=== PATIENT | female | born 1950 | race Caucasian/White ===

== ENCOUNTER 2019-04-01 11:09 | Emergency (ER) | payer MEDICARE, SELFPAY ==
[2019-04-01] VITALS (12 sets, daily range): BP systolic 98–200; BP diastolic 49–104; PULSE 69–81; RESP 12–20; TEMP 36.6–36.8; O2SAT 4–99; BMI 64.9
--- NOTE | 2019-04-01 11:46 | RAD_ITS ---
STUDY: X-RAY - LEFT FEMUR REASON FOR STUDY: Pain, injury. TECHNIQUE: 2 view(s) of the femur. COMPARISON: None. FINDINGS: There is osteopenia. There is a mildly displaced subcapital hip fracture. There are degenerative changes of the left knee. There is vascular calcification. RAD/Femur Min 2 Views IMPRESSION: Left hip fracture. Osteopenia. Electronically Signed: Jose Vance MD at 14:31 EDT Tel , Service support ,
--- NOTE | 2019-04-01 11:46 | RAD_ITS ---
STUDY: X-RAY - LEFT ANKLE REASON FOR EXAM: Pain, injury. TECHNIQUE: 3 view(s) of the ankle. COMPARISON: None. FINDINGS: There is severe osteopenia. Normal visualized distal tibia. There is chronic healed fracture deformity of the distal fibula. Normal medial and lateral malleoli. Normal tibiotalar articulation and ankle mortise. Normal visualized talus and calcaneus. The visualized subtalar, talonavicular, calcaneocuboid and tarsal articulations are normal. There is soft tissue swelling. There is vascular calcification. There are surgical clips. RAD/Ankle min 3 Views IMPRESSION: Chronic healed fracture deformity of the distal fibula. Soft tissue swelling. Osteopenia. Electronically Signed: Jose Vance MD at 14:26 EDT Tel , Service support ,
--- NOTE | 2019-04-01 11:46 | RAD_ITS ---
STUDY: X-RAY - PELVIS REASON FOR EXAM: Female, 69 years old. Pain TECHNIQUE: One view of the pelvis was obtained. COMPARISON: None. FINDINGS: There is a non-specific bowel gas pattern. Normal visualized soft tissue structures. There is diffuse demineralization of the osseous structures. Degenerative arthrosis noted in both hips and the SI joints. No clearly demonstrated fracture. However, hip and pelvic fractures in patients of this age can be subtle, if there is strong clinical suspicion of a fracture, recommend further evaluation with CT. Dense vascular calcifications noted. RAD/Pelvis 1 or 2 Views IMPRESSION: Diffuse osteopenia with degenerative arthrosis. No clearly demonstrated fracture. However, if there is strong clinical suspicion of a fracture, recommend further evaluation with CT Electronically Signed: Clint Barrientos MD at 13:25 EDT , Service support ,
--- NOTE | 2019-04-01 11:46 | RAD_ITS ---
STUDY: X-RAY - LEFT FOOT CLINICAL: Pain, injury. TECHNIQUE: 3 view(s) of the foot. COMPARISON: None. FINDINGS: There is severe osteopenia. Normal talus, calcaneus, and tarsal bones. Normal visualized subtalar, talonavicular, calcaneocuboid, tarsal and tarsometatarsal articulations. Normal metatarsi. Normal metatarsophalangeal joint of the great toe. Normal tibial and fibular sesamoid bones. Normal interphalangeal joint of the great toe. Normal phalanges of the great toe. Normal second through fifth metatarsophalangeal joints. Normal interphalangeal joints and phalanges of the lesser toes. There is soft tissue swelling. There is vascular calcification. RAD/Foot min 3 Views IMPRESSION: Soft tissue swelling. Severe osteopenia limiting evaluation for fracture. Electronically Signed: Jose Vance MD at 14:25 EDT Tel , Service support ,
--- NOTE | 2019-04-01 11:46 | RAD_ITS ---
STUDY: X-RAY CHEST REASON FOR EXAM: Female, 69 years old. Shortness of breath, desaturation, recent fall, pain TECHNIQUE: Portable chest COMPARISON: None. FINDINGS: There is no visible rib fracture, limited evaluation. Evaluated portions of the shoulders appear intact. Mild scoliosis and thoracic spondylosis. Median sternotomy, moderate cardiomegaly, ectatic aortic arch, normal hermelindo and pleural margins. Bibasilar atelectasis. Low inspiratory effort. No defined effusion. No apparent pneumothorax. RAD/Chest 1 View IMPRESSION: Atelectasis. No evidence of acute injury. Electronically Signed: Livan Sow MD at 14:32 EDT Tel , Service support ,
--- NOTE | 2019-04-01 11:47 | RAD_ITS ---
STUDY: X-RAY - LEFT ELBOW REASON FOR EXAM: Female, 69 years old. Injury, pain, fall TECHNIQUE: 3 view(s) of the elbow. COMPARISON: None. FINDINGS: Osteopenia. No visible fracture. No apparent effusion. Normal alignment of the radiocapitellar and ulnotrochlear articulations. Periarticular soft tissues exhibit no acute process. Moderate peripheral arterial calcifications. There is osteophytosis of the coronoid process of the ulna at the articular margin, mild chronic degenerative features. RAD/Elbow min 3 Views IMPRESSION: No radiographic evidence of acute injury. Electronically Signed: Livan Sow MD at 14:31 EDT Tel , Service support ,
--- NOTE | 2019-04-01 11:48 | ED.VIS.GEN ---
History of Present Illness Chief Complaint: Shortness of Breath Informant: Patient Onset: Days - 2-3 Context: Gradual Onset Timing: Continuous Quality: wheezing Location: chest Current Severity: Moderate Maximum Severity: Moderate Worsened by: unk Relieved by: unk Associated Symptoms: see below Narrative: Patient is sent from nursing facility. She fell out of bed 1 week ago onto her left side and has been having left knee and hip pain ever since but she states that her entire leg hurts. She states she had x-rays and they told her they were negative. She states she could not walk prior to this fall. She states both of her elbows are also hurting. She did not injure the right one. She did not injure her head or lose consciousness. States that she started getting short of breath 2 days ago, chest started hurting around that time. She is a very poor historian, cannot tell me anything about her chest discomfort other than it hurts. No apparent radiation. She cannot tell me if her cough is worse than usual or if her sputum production is different colored or amount than usual. Exam is very limited since the patient refuses to move her extremities, allow us to roll her or sit her up in order to listen to her back well, and tells us not to touch her left lower extremity. She also tells us that something split underneath of her left breast when she fell a week ago, and then tells us not to touch it. She eventually allows examination of it. - Past Medical History (1) Chronic back pain Status: Chronic (2) Diabetic gastropathy Status: Chronic (3) Fatty liver Status: Chronic (4) Gastroesophageal reflux disease Status: Chronic (5) Type 2 diabetes mellitus Status: Chronic (6) complex cyst left kidney Status: Chronic (7) history of bleeding diverticulosis Status: Chronic (8) COPD (chronic obstructive pulmonary disease) Status: Chronic (9) CHF (congestive heart failure) Status: Chronic (10) Hypothyroid Status: Chronic (11) MARLY (obstructive sleep apnea) Status: Chronic (12) Anxiety Status: Chronic (13) Crohns disease Status: Chronic (14) Rheumatoid arthritis Status: Chronic Past Medical History - Allergies and Home Meds Allergies/Adverse Reactions: Allergies levofloxacin [Levofloxacin] Allergy (Verified 04/01/19 11:11) Rash meperidine HCl [From Demerol] Adverse Reaction (Verified 04/01/19 11:11) Vomiting oxycodone Adverse Reaction (Verified 04/01/19 11:11) Upset Stomach Primary Care Physician: Dwaine Ramsey MD [Primary Care Provider] - Surgical History: coronary bypass surgery, total knee arthroplasty Lives: Group Home Smoking Status: Former smoker Review of Systems General: Reports: Malaise. Denies: Chills, Fever Eyes: Denies: Visual changes - bilaterally, Diplopia ENT: Denies: Rhinorrhea, Sore throat Cardiovascular: Reports: Chest pain. Denies: Palpitations Respiratory: Reports: Dyspnea, Cough, Sputum. Denies: Dyspnea on exertion Gastrointestinal: Denies: Abdominal pain, Nausea, Vomiting, Diarrhea, Melena, Hematochezia Genitourinary: Denies: Dysuria, Hematuria, Frequency Musculoskeletal: Reports: Back pain - chronic, unchanged, Swelling, Extremity Pain Skin: Denies: Rash, Wounds Neurological: Denies: Headache, Weakness, Numbness Physical Exam Vital Signs/Narrative: Vital Signs Temp Pulse Resp BP Pulse Ox 04/01/19 11:12 98.3 F 80 20 H 143/84 H 97 Inital Vital Signs reviewed: Yes General: Well nourished, Well developed, Obese - morbidly, No Acute Distress Head: Normocephalic, Atraumatic Eyes: Perrl, EOMI ENT: Moist mucous membranes, No rhinorrhea Neck: Supple, Nontender Cardiovascular: Regular rate, Regular rhythm, No murmurs Respiratory: No distress - w/ midline trachea, Wheezing, Diminished, Chest tenderness - left inframammary superficial skin splits w/o signs of infection, bleeding, discharge. Negative for: Rales, Rhonchi Abdomen: Soft, Nontender, Nondistended, Normal bowel sounds Extremities: Tenderness - Throughout left lower extremity which patient refuses to move. Tender everywhere from the hip down to the toes. There is some ecchymosis on her third toe and at the anterior knee but no other signs of trauma. No deformities. Able to range the right lower extremity and her arms except limited at both elbows, tender at the left olecranon., Edema - 3+ BLE, symmetric w/o signs of cellulitis Skin: Normal color, No rash Neurological: Alert, Oriented x3, Cranial nerves II-XII grossly intact, Normal Strength, Normal Sensation Psychological: Normal affect, Normal Mood Diagnostic/Tx/Re-eval Impressions Ankle X-Ray 04/01/19 11:46 IMPRESSION: Chronic healed fracture deformity of the distal fibula. Soft tissue swelling. Osteopenia. Electronically Signed: Jose Vance MD at 14:26 EDT Tel , Service support , Chest X-Ray 04/01/19 11:46 IMPRESSION: Atelectasis. No evidence of acute injury. Electronically Signed: Livan Sow MD at 14:32 EDT Tel , Service support , Femur X-Ray 04/01/19 11:46 IMPRESSION: Left hip fracture. Osteopenia. Electronically Signed: Jose Vance MD at 14:31 EDT Tel , Service support , Foot X-Ray 04/01/19 11:46 IMPRESSION: Soft tissue swelling. Severe osteopenia limiting evaluation for fracture. Electronically Signed: Jose Vance MD at 14:25 EDT Tel , Service support , Pelvis X-Ray 04/01/19 11:46 IMPRESSION: Diffuse osteopenia with degenerative arthrosis. No clearly demonstrated fracture. However, if there is strong clinical suspicion of a fracture, recommend further evaluation with CT Electronically Signed: Clint Barrientos MD at 13:25 EDT , Service support , Elbow X-Ray 04/01/19 11:47 IMPRESSION: No radiographic evidence of acute injury. Electronically Signed: Livan Sow MD at 14:31 EDT Tel , Service support , 04/01/19 11:46 Ankle min 3 Views [RAD] Stat Chest 1 View [RAD] Stat Femur Min 2 Views [RAD] Stat Pelvis 1 or 2 Views [RAD] Stat Xray Foot [Foot min 3 Views] [RAD] Stat 04/01/19 11:47 Elbow min 3 Views [RAD] Stat Laboratory Results 04/01/19 04/01/19 04/01/19 12:00 12:00 12:00 WBC 12.7 H RBC 3.49 L Hgb 9.9 L Hct 33.5 L MCV 96.0 MCH 28.4 MCHC 29.6 L RDW 14.9 H RDW Differential 52.4 H Plt Count 224 MPV 11.1 Immature Gran % (Auto) 0.300 Neut % (Auto) 60.1 Lymph % (Auto) 26.4 [place] % (Auto) 9.9 Eos % (Auto) 3.1 Baso % (Auto) 0.2 Absolute Neuts (auto) 7.6 Absolute Lymphs (auto) 3.34 Total Counted Not Reportable Absolute Retic 0.03 Sodium 139 Potassium 3.8 Chloride 103 Carbon Dioxide 32.0 Anion Gap 4 L BUN 33 H Creatinine 2.10 H Estim Creat Clear Calc 20.62 Est GFR (MDRD) Af Amer 30 L Est GFR (MDRD) Non-Af 25 L BUN/Creatinine Ratio 15.7 Glucose 163 H Calcium 9.7 Troponin I < 0.015 B-Natriuretic Peptide 137.4 H - Medical Decision Making Due to patient's obesity exam is very limited. Therefore I obtained a lot of x-rays mostly of her left lower extremity. We do see evidence of a subcapital left hip femoral neck fracture. There are no other apparent fractures. She was treated several times with IV morphine for pain. Her elbow does not appear to be fractured. She can move that very well. Her chest x-ray shows no infiltrates or acute abnormalities and her BNP is very low, her breathing is better after nebulizer treatment. Her dyspnea is probably related to her COPD. I discussed with orthopedics on-call Dr. Joreg Pyle, the patient has seen Dr. Hammond in his group before and had a right knee replacement remotely in [place]. With the patient's comorbidities and BMI of 65, he recommends transfer to a tertiary care center as that will be difficult to care for definitively at this hospital. Her x-ray shows a minimally displaced subcapital femoral neck fracture. From further discussion with the patient, it sounds like she has been bedridden the last year or so at the skilled nursing, they use a Sakina lift to get her around. However, if she does not have this fracture repaired, she may be at risk for avascular necrosis of the femoral head, therefore I think she is deserving of an orthopedic evaluation. Dr. Colin Pyle at [facility] reportedly in agreement. Accepted by Dr. Hartley. ED Disposition - Plan for ED Patient: Disposition: [facility] Diagnosis: Closed left hip fracture, COPD exacerbation Referrals: Dwaine Ramsey MD [Primary Care Provider] -
--- NOTE | 2019-04-01 11:53 | ED.DCSUM_ITS ---
History of Present Illness Chief Complaint: Shortness of Breath Informant: Patient Onset: Days - 2-3 Context: Gradual Onset Timing: Continuous Quality: wheezing Location: chest Current Severity: Moderate Maximum Severity: Moderate Worsened by: unk Relieved by: unk Associated Symptoms: see below Narrative: Patient is sent from nursing facility. She fell out of bed 1 week ago onto her left side and has been having left knee and hip pain ever since but she states that her entire leg hurts. She states she had x-rays and they told her they were negative. She states she could not walk prior to this fall. She states both of her elbows are also hurting. She did not injure the right one. She did not injure her head or lose consciousness. States that she started getting short of breath 2 days ago, chest started hurting around that time. She is a very poor historian, cannot tell me anything about her chest discomfort other than it hurts. No apparent radiation. She cannot tell me if her cough is worse than usual or if her sputum production is different colored or amount than usual. Exam is very limited since the patient refuses to move her extremities, allow us to roll her or sit her up in order to listen to her back well, and tells us not to touch her left lower extremity. She also tells us that something split underneath of her left breast when she fell a week ago, and then tells us not to touch it. She eventually allows examination of it. - Past Medical History (1) Chronic back pain Status: Chronic (2) Diabetic gastropathy Status: Chronic (3) Fatty liver Status: Chronic (4) Gastroesophageal reflux disease Status: Chronic (5) Type 2 diabetes mellitus Status: Chronic (6) complex cyst left kidney Status: Chronic (7) history of bleeding diverticulosis Status: Chronic (8) COPD (chronic obstructive pulmonary disease) Status: Chronic (9) CHF (congestive heart failure) Status: Chronic (10) Hypothyroid Status: Chronic (11) MARLY (obstructive sleep apnea) Status: Chronic (12) Anxiety Status: Chronic (13) Crohns disease Status: Chronic (14) Rheumatoid arthritis Status: Chronic Past Medical History - Allergies and Home Meds Allergies/Adverse Reactions: Allergies levofloxacin [Levofloxacin] Allergy (Verified 04/01/19 11:11) Rash meperidine HCl [From Demerol] Adverse Reaction (Verified 04/01/19 11:11) Vomiting oxycodone Adverse Reaction (Verified 04/01/19 11:11) Upset Stomach Primary Care Physician: Dwaine Ramsey MD [Primary Care Provider] - Surgical History: coronary bypass surgery, total knee arthroplasty Lives: [facility] Smoking Status: Former smoker Review of Systems General: Reports: Malaise. Denies: Chills, Fever Eyes: Denies: Visual changes - bilaterally, Diplopia ENT: Denies: Rhinorrhea, Sore throat Cardiovascular: Reports: Chest pain. Denies: Palpitations Respiratory: Reports: Dyspnea, Cough, Sputum. Denies: Dyspnea on exertion Gastrointestinal: Denies: Abdominal pain, Nausea, Vomiting, Diarrhea, Melena, Hematochezia Genitourinary: Denies: Dysuria, Hematuria, Frequency Musculoskeletal: Reports: Back pain - chronic, unchanged, Swelling, Extremity Pain Skin: Denies: Rash, Wounds Neurological: Denies: Headache, Weakness, Numbness Physical Exam Vital Signs/Narrative: Vital Signs Temp Pulse Resp BP Pulse Ox 04/01/19 11:12 98.3 F 80 20 H 143/84 H 97 Inital Vital Signs reviewed: Yes General: Well nourished, Well developed, Obese - morbidly, No Acute Distress Head: Normocephalic, Atraumatic Eyes: Perrl, EOMI ENT: Moist mucous membranes, No rhinorrhea Neck: Supple, Nontender Cardiovascular: Regular rate, Regular rhythm, No murmurs Respiratory: No distress - w/ midline trachea, Wheezing, Diminished, Chest tenderness - left inframammary superficial skin splits w/o signs of infection, bleeding, discharge. Negative for: Rales, Rhonchi Abdomen: Soft, Nontender, Nondistended, Normal bowel sounds Extremities: Tenderness - Throughout left lower extremity which patient refuses to move. Tender everywhere from the hip down to the toes. There is some ecchymosis on her third toe and at the anterior knee but no other signs of trauma. No deformities. Able to range the right lower extremity and her arms except limited at both elbows, tender at the left olecranon., Edema - 3+ BLE, symmetric w/o signs of cellulitis Skin: Normal color, No rash Neurological: Alert, Oriented x3, Cranial nerves II-XII grossly intact, Normal Strength, Normal Sensation Psychological: Normal affect, Normal Mood Diagnostic/Tx/Re-eval Impressions Ankle X-Ray 04/01/19 11:46 IMPRESSION: Chronic healed fracture deformity of the distal fibula. Soft tissue swelling. Osteopenia. Electronically Signed: Jose Vance MD at 14:26 EDT Tel , Service support , Chest X-Ray 04/01/19 11:46 IMPRESSION: Atelectasis. No evidence of acute injury. Electronically Signed: Livan Sow MD at 14:32 EDT Tel , Service support , Femur X-Ray 04/01/19 11:46 IMPRESSION: Left hip fracture. Osteopenia. Electronically Signed: Jose Vance MD at 14:31 EDT Tel , Service support , Foot X-Ray 04/01/19 11:46 IMPRESSION: Soft tissue swelling. Severe osteopenia limiting evaluation for fracture. Electronically Signed: Jose Vance MD at 14:25 EDT Tel , Service support , Pelvis X-Ray 04/01/19 11:46 IMPRESSION: Diffuse osteopenia with degenerative arthrosis. No clearly demonstrated fracture. However, if there is strong clinical suspicion of a fracture, recommend further evaluation with CT Electronically Signed: Clint Barrientos MD at 13:25 EDT , Service support , Elbow X-Ray 04/01/19 11:47 IMPRESSION: No radiographic evidence of acute injury. Electronically Signed: Livan Sow MD at 14:31 EDT Tel , Service support , 04/01/19 11:46 Ankle min 3 Views [RAD] Stat Chest 1 View [RAD] Stat Femur Min 2 Views [RAD] Stat Pelvis 1 or 2 Views [RAD] Stat Xray Foot [Foot min 3 Views] [RAD] Stat 04/01/19 11:47 Elbow min 3 Views [RAD] Stat Laboratory Results 04/01/19 04/01/19 04/01/19 12:00 12:00 12:00 WBC 12.7 H RBC 3.49 L Hgb 9.9 L Hct 33.5 L MCV 96.0 MCH 28.4 MCHC 29.6 L RDW 14.9 H RDW Differential 52.4 H Plt Count 224 MPV 11.1 Immature Gran % (Auto) 0.300 Neut % (Auto) 60.1 Lymph % (Auto) 26.4 [place] % (Auto) 9.9 Eos % (Auto) 3.1 Baso % (Auto) 0.2 Absolute Neuts (auto) 7.6 Absolute Lymphs (auto) 3.34 Total Counted Not Reportable Absolute Retic 0.03 Sodium 139 Potassium 3.8 Chloride 103 Carbon Dioxide 32.0 Anion Gap 4 L BUN 33 H Creatinine 2.10 H Estim Creat Clear Calc 20.62 Est GFR (MDRD) Af Amer 30 L Est GFR (MDRD) Non-Af 25 L BUN/Creatinine Ratio 15.7 Glucose 163 H Calcium 9.7 Troponin I < 0.015 B-Natriuretic Peptide 137.4 H - Medical Decision Making Due to patient's obesity exam is very limited. Therefore I obtained a lot of x- rays mostly of her left lower extremity. We do see evidence of a subcapital left hip femoral neck fracture. There are no other apparent fractures. She was treated several times with IV morphine for pain. Her elbow does not appear to be fractured. She can move that very well. Her chest x-ray shows no infiltra zeeshan or acute abnormalities and her BNP is very low, her breathing is better after nebulizer treatment. Her dyspnea is probably related to her COPD. I discussed with orthopedics on-call Dr. Jorge Pyle, the patient has seen Dr. Hammond in his group before and had a right knee replacement remotely in [place]. With the patient's comorbidities and BMI of 65, he recommends transfer to a tertiary care center as that will be difficult to care for definitively at this hospital. Her x-ray shows a minimally displaced subcapital femoral neck fracture. From further discussion with the patient, it sounds like she has been bedridden the last year or so at the senior care, they use a [employer] lift to get her around. However, if she does not have this fracture repaired, she may be at risk for avascular necrosis of the femoral head, therefore I think she is deserving of an orthopedic evaluation. Dr. Colin Pyle at [facility] reportedly in agreement. Accepted by Dr. Hartley. ED Disposition - Plan for ED Patient: Disposition: [facility] Diagnosis: Closed left hip fracture, COPD exacerbation Referrals: Dwaine Ramsey MD [Primary Care Provider] -
[2019-04-01] MEDS: Ipratropium/Albuterol Sulfate 3 ML AMPUL.NEB INHALATION (12:01)
[2019-04-01] MEDS: Albuterol 2.5 MG/3 ML VIAL.NEB. INHALATION (12:01)
[2019-04-01] MEDS: Morphine 4 MG/ML Syringe IV ×2 (12:12→15:16)
[2019-04-01 12:22] LABS: Absolute Lymphocyte Count 3.34 X10^3/ul (0.83-4.51); Absolute Neutrophil Count 7.6 X10^3/uL (2.0-7.7); Basophil# 0.03 X10^3/uL; Basophil% 0.2 % (0-1); Eosinophil# 0.39 X10^3/uL; Eosinophils% 3.1 % (0-5); Hematocrit 33.5 % (37-47); Hemoglobin 9.9 g/dl (12.0-15.0); Lymphocyte # 3.34 X10^3/ul (4.0); Lymphocyte % 26.4 % (19-41); Mean Corp Hgb Conc 29.6 g/gl (32-36); Mean Corpuscular Hgb 28.4 pg (27.0-32.0); Mean Platelet Vol. 11.1 fl (6.2-12.0); Monocyte# 1.25 X10^3/uL; Monocyte% 9.9 % (0-10); Neutrophil # 7.62 X10^3/uL (2.7-7.7); Neutrophil % 60.1 % (47-70); Platelet Count 224 K/mm3 (150-450); RBC Distribution Width CV 14.9 % (11.6-14.6); RBC Distribution Width SD 52.4 fl (35.1-43.9); Red Blood Count 3.49 M/mm3 (4.2-5.4); White Blood Count 12.7 K/mm3 (4.4-11.0)
[2019-04-01 12:23] LABS: POSITIVE COUNT NO; POSITIVE DIFFERENTIAL NO; POSITIVE MORPHOLOGY NO
[2019-04-01 12:24] LABS: Absolute Nucleated RBC Count 0.03 10^3/uL (0-5)
[2019-04-01 12:32] LABS: Anion Gap 4 (5-15); BUN 33 mg/dL (7-18); BUN/Creat Ratio 15.7 RATIO (10-20); Calcium,Total 9.7 mg/dL (8.5-10.1); Chloride 103 mmol/L (98-107); EST Glomerular Filtration Rate 25 mL/min (>60); Est Glom Filt Rate - Afr Amer 30 mL/min (>60); Estimated Creatinine Clearance 20.62 ml/min; Glucose 163 mg/dL (74-106); Potassium 3.8 mmol/L (3.5-5.1); Sodium Level 139 mmol/L (136-145)
[2019-04-01 12:50] LABS: BNP,B-Type NATRIURETIC PEPTIDE 137.4 pg/mL (0-100)
--- NOTE | 2019-04-01 16:49 | NURSING ---
1712 CALLED [facility] FOR TRANSFER. TALKED TO DHARMESH. FAXED FACESHEET
--- NOTE | 2019-04-01 18:19 | NURSING ---
[facility] [address] ROOM [address] SALEEM DEAL CONSULT DR JAMES RAY NURSE TO NURSE [phone]
== END 2019-04-01 19:44 | disposition short-term general hospital (02) ==
PROVIDERS: Emergency Provider Emergency Medicine; Family Provider Family Medicine; PCP Family Medicine
DX: S72.012A Unspecified intracapsular fracture of left femur, initial encounter for closed fracture (principal); W06.XXXA Fall from bed, initial encounter; Y93.9 Activity, unspecified; Y92.9 Unspecified place or not applicable; J44.1 Chronic obstructive pulmonary disease with (acute) exacerbation; I50.9 Heart failure, unspecified; E11.9 Type 2 diabetes mellitus without complications; E03.9 Hypothyroidism, unspecified; F41.9 Anxiety disorder, unspecified; K50.90 Crohn's disease, unspecified, without complications; K21.9 Gastro-esophageal reflux disease without esophagitis; M06.9 Rheumatoid arthritis, unspecified; E66.9 Obesity, unspecified; Z95.1 Presence of aortocoronary bypass graft; Z79.4 Long term (current) use of insulin; Z79.891 Long term (current) use of opiate analgesic; Z79.899 Other long term (current) drug therapy; Z87.891 Personal history of nicotine dependence
CPT/HCPCS: 71045; 72170; 73080; 73552; 73610; 73630; 80048; 83880; 84484; 85025; 94640; 96374; 96376; 99285; A4216

== ENCOUNTER 2019-08-24 23:32 | Emergency (ER) | payer MEDICARE, MEDICAID, SELFPAY ==
[2019-04-01 11:12] VITALS: BMI 64.9
[2019-08-24 23:33] VITALS: BP 263/217; PULSE 73; PULSE 76; RESP 18; TEMP 36.2; O2SAT 97; BMI 61.2
[2019-08-24 23:44] VITALS: BP 242/115
--- NOTE | 2019-08-24 23:45 | ED.DCSUM_ITS ---
History of Present Illness Chief Complaint: General Illness Informant: Patient Narrative: Stated she was sent in for evaluation for outpatient lab work results. She had a electrolyte panel done today that showed a bicarbonate level CO2 of 18. She was sent in from the senior living for further evaluation of this. Her prior bicarbonate level was 24 approximately 1 week ago. Patient also had a sodium that that was mildly high at 150 and a chloride that was mildly high at 115. Patient has chronic renal insufficiency. Baseline creatinine actually has been trending down from 1.8 down to 1.4 today. Patient has no complaints. She recently was discharged from the hospital for urinary tract infection. She has a chronic Jacques catheter. She is morbidly obese and bedbound. She has chronic COPD chronic hypertension and chronic CHF. She stated these are not causing her any problems. Patient has no complaints currently. - Past Medical History (1) Anxiety Status: Chronic (2) CHF (congestive heart failure) Status: Chronic (3) COPD (chronic obstructive pulmonary disease) Status: Chronic (4) Chronic back pain Status: Chronic (5) Crohns disease Status: Chronic (6) Diabetic gastropathy Status: Chronic (7) Fatty liver Status: Chronic (8) Gastroesophageal reflux disease Status: Chronic (9) Hypothyroid Status: Chronic (10) MARLY (obstructive sleep apnea) Status: Chronic (11) Rheumatoid arthritis Status: Chronic (12) Type 2 diabetes mellitus Status: Chronic (13) complex cyst left kidney Status: Chronic (14) history of bleeding diverticulosis Status: Chronic Past Medical History - Allergies and Home Meds Allergies/Adverse Reactions: Allergies levofloxacin [Levofloxacin] Allergy (Verified 04/01/19 11:11) Rash meperidine HCl [From Demerol] Adverse Reaction (Verified 04/01/19 11:11) Vomiting oxycodone Adverse Reaction (Verified 04/01/19 11:11) Upset Stomach Primary Care Physician: Dwaine Ramsey MD [Primary Care Provider] - Prior records reviewed: Yes Past Medical History: - - See problem list Surgical History: coronary bypass surgery, total knee arthroplasty Lives: [facility] Smoking Status: Former smoker Alcohol: None Drugs: None Review of Systems General: Denies: Chills, Fever, Sweats Eyes: Denies: Visual changes - bilaterally, Diplopia ENT: Denies: Rhinorrhea, Sore throat Cardiovascular: Denies: Chest pain, Palpitations Respiratory: Denies: Dyspnea, Cough, Dyspnea on exertion Gastrointestinal: Denies: Abdominal pain, Nausea, Vomiting, Diarrhea, Melena, Hematochezia Genitourinary: Denies: Dysuria, Hematuria, Frequency Musculoskeletal: Denies: Back pain, Extremity Pain Skin: Denies: Rash, Wounds Neurological: Denies: Headache, Weakness, Numbness Physical Exam Vital Signs/Narrative: Vital Signs Temp Pulse Resp BP Pulse Ox 08/24/19 23:44 242/115 H 08/24/19 23:33 97.2 F L 76 18 263/217 H 97 General: Well nourished, Well developed, No Acute Distress Head: Normocephalic, Atraumatic Eyes: Perrl, EOMI ENT: Moist mucous membranes, No rhinorrhea Neck: Supple, Nontender Cardiovascular: Regular rate, Regular rhythm, No murmurs Respiratory: No distress, CTA bilaterally, Chest nontender Abdomen: Soft, Nontender, Nondistended, Normal bowel sounds Back: Nontender, Normal Inspection Extremities: Nontender, No edema Skin: No rash, - - And bruises easily with multiple bruises on her upper and lower extremities. She has a blood blister on the bottom of her left foot irsael uring 2 x 2 inches. She was unaware of this until her discharge a few days ago per patient. She has a right sided PICC line that is clean dry and intact.. Negative for: Normal color Neurological: Alert, Oriented x3, Cranial nerves II-XII grossly intact, Normal Strength, Normal Sensation Psychological: Normal affect, Normal Mood Diagnostic/Tx/Re-eval Laboratory Results 08/25/19 00:00 Sodium 148 H Potassium 3.4 L Chloride 114 H Carbon Dioxide 27.0 Anion Gap 7 BUN 26 H Creatinine 1.42 H Estim Creat Clear Calc 30.49 Est GFR (MDRD) Af Amer 47 L Est GFR (MDRD) Non-Af 39 L BUN/Creatinine Ratio 18.3 Glucose 132 H Calcium 8.7 - Medical Decision Making Patient monitored in the department. Repeat electrolyte panel obtained. Lab work shows BUN of 27 on repeat analysis. Sodium remains mildly high. Potassium is mildly low at 3.4. I do not feel this needs replaced. Patient has chronic renal insufficiency with a baseline creatinine 1.4 at this time. Patient will be discharged back to the senior living ED Disposition - Plan for ED Patient: Disposition: Home or Assisted Living Diagnosis: Electrolyte abnormality Instructions: Hypernatremia Referrals: Dwaine Ramsey MD [Primary Care Provider] -
[2019-08-24 23:51] VITALS: BP 176/103; PULSE 72; RESP 16; O2SAT 97
[2019-08-25 00:18] LABS: Anion Gap 7 (5-15); BUN 26 mg/dL (7-18); BUN/Creat Ratio 18.3 RATIO (10-20); Calcium,Total 8.7 mg/dL (8.5-10.1); Chloride 114 mmol/L (98-107); Creatinine, Serum 1.42 mg/dL (0.55-1.02); EST Glomerular Filtration Rate 39 mL/min (>60); Est Glom Filt Rate - Afr Amer 47 mL/min (>60); Estimated Creatinine Clearance 30.49 ml/min; Glucose 132 mg/dL (74-106); Potassium 3.4 mmol/L (3.5-5.1); Sodium Level 148 mmol/L (136-145)
[2019-08-25 00:35] VITALS: BP 156/49; PULSE 70; RESP 16; O2SAT 97
[2019-08-25 00:56] VITALS: BP 106/48; PULSE 88; RESP 18; O2SAT 96
== END 2019-08-25 01:09 | disposition home or self-care (01) ==
PROVIDERS: Emergency Provider Emergency Medicine; Family Provider Family Medicine; PCP Family Medicine
DX: E87.8 Other disorders of electrolyte and fluid balance, not elsewhere classified (principal); I13.0 Hypertensive heart and chronic kidney disease with heart failure and stage 1 through stage 4 chronic kidney disease, or unspecified chronic kidney disease; E11.22 Type 2 diabetes mellitus with diabetic chronic kidney disease; N18.9 Chronic kidney disease, unspecified; I50.9 Heart failure, unspecified; E03.9 Hypothyroidism, unspecified; M06.9 Rheumatoid arthritis, unspecified; G47.33 Obstructive sleep apnea (adult) (pediatric); K50.90 Crohn's disease, unspecified, without complications; J44.9 Chronic obstructive pulmonary disease, unspecified; F41.9 Anxiety disorder, unspecified; K21.9 Gastro-esophageal reflux disease without esophagitis; G89.29 Other chronic pain; E66.01 Morbid (severe) obesity due to excess calories; Z95.1 Presence of aortocoronary bypass graft; Z74.01 Bed confinement status; Z87.891 Personal history of nicotine dependence; Z79.4 Long term (current) use of insulin; Z79.899 Other long term (current) drug therapy
CPT/HCPCS: 80048; 99284; A4216